=== PATIENT | female | born 2000 | race Two or more races ===

== ENCOUNTER 2022-04-28 20:48 | Emergency (ER) | payer MEDICAID, OTHER ==
[~2022-04-28] VITALS: Ht 154.9 cm; Wt 50.4 kg
[2022-04-28] MEDS ORDERED: KETOROLAC TROMETH 30 MG/ML 1ML VIAL IM ONE (23:30)
[2022-04-29 00:12] VITALS: BP 109/71
== END 2022-04-29 00:30 | disposition home or self-care (01) ==
LOC: ER 20:48
DX: J02.0 Streptococcal pharyngitis (principal); J45.909 Unspecified asthma, uncomplicated; F12.10 Cannabis abuse, uncomplicated
CPT/HCPCS: 87070; 87880; 96372; 99283; J1885